=== PATIENT | female | born 1925 | race Caucasian/White ===

== ENCOUNTER 2016-06-03 11:07 | Emergency (ER) | payer MEDICARE, OTHER ==
[2016-06-03] MEDS ORDERED: Gelfoam 12-7 ADSORBABL SPONGE* 1 EA SPONGE TOPICAL ONE (11:18)
--- NOTE | 2016-06-03 11:23 | UC ---
Skin Complaint HPI - HPI Summary HPI Summary: sliced her fingertip accidentally with a razor. Can't get it to stop bleeding. On blood thinner, was on aspirin also until a week ago. - History of Current Complaint Time Seen by Provider: 06/03/16 11:18 Stated Complaint: LEFT MIDDLE FINGER LAC Hx Obtained From: Patient, Family/Gizzard Puller - son Hx Last Menstrual Period: n/a Onset/Duration: Sudden Onset, Lasting Hours - 2 Timing: Constant Onset Severity: Mild Current Severity: Mild Location: Other - left middle fingertip Character: Pain Aggravating: Nothing Alleviating: Nothing Associated Signs & Symptoms: Positive: Tenderness Related History: Trauma - Allergy/Home Medications Allergies/Adverse Reactions: Allergies Allergy/AdvReac Type Severity Reaction Status Date / Time Sulfa Antibiotics Allergy Unknown Verified 10/20/13 14:40 Reaction Details Review of Systems Constitutional: Negative Skin: Other - cut to fingertip Eyes: Negative ENT: Negative Respiratory: Negative Cardiovascular: Negative Gastrointestinal: Negative Genitourinary: Negative Motor: Negative Neurovascular: Negative Musculoskeletal: Negative Neurological: Negative Psychological: Negative All Other Systems Reviewed And Are Negative: Yes PMH/Surg Hx/FS Hx/Imm Hx Endocrine History Of: Reports: Thyroid Disease Cardiovascular History Of: Reports: Cardiac Disorders - Afib, Hypertension - Surgical History Surgical History: Yes Surgery Procedure, Year, and Place: tonsils 193, hysterectomy 1972 - Family History Known Family History: Positive: Hypertension - Social History Occupation: Retired Lives: With Family Alcohol Use: Rare Substance Use Type: None Physical Exam Triage Information Reviewed: Yes Appearance: Well-Appearing, No Pain Distress, Well-Nourished Vital Signs Reviewed: Yes Eye Exam: Normal ENT: Positive: Hearing grossly normal. Negative: Trismus, Muffled/hoarse voice Neck exam: Normal Neck: Positive: Supple Respiratory Exam: Normal Cardiovascular Exam: Normal Musculoskeletal Exam: Normal Neurological Exam: Normal Psychological Exam: Normal Skin Exam: Other - avulsion of part of 3rd fingerpad. About 1cm x 0.5cm. Active oozing. Course/Dx - Course Course Of Treatment: Wound cleansed, gelfoam placed on wound, pressure dressing. - Diagnoses Provider Diagnoses: skin avulsion injury Discharge - Discharge Plan Condition: Stable Disposition: HOME Patient Education Materials: Skin Avulsion (ED) Referrals: Angelica CORDERO,Chase Garcia [Primary Care Provider] - Additional Instructions: Keep the artificial scab on the wound. Wash around it with soap and water, pat it dry, rebandage it. The material will eventually fall off, but resist the urge to pick it off for the next 5 or 6 days.
[2016-06-03] MEDS ORDERED: Gelfoam 12-7 ADSORBABL SPONGE* 1 EA SPONGE ONE (11:40)
[2016-06-03 11:44] VITALS: BP 117/88
== END 2016-06-03 12:11 | disposition home or self-care (01) ==
LOC: UCCORT 11:07
DX: S61.213A Laceration without foreign body of left middle finger without damage to nail, initial encounter (principal); W45.8XXA Other foreign body or object entering through skin, initial encounter; Y93.9 Activity, unspecified; Y92.9 Unspecified place or not applicable; Z88.2 Allergy status to sulfonamides; I48.91 Unspecified atrial fibrillation; Z79.01 Long term (current) use of anticoagulants; Z79.82 Long term (current) use of aspirin
CPT/HCPCS: 99212; A9270-GY; G0463